=== PATIENT | male | born 1990 | race African-American/Black ===

== ENCOUNTER 2020-08-15 00:53 | Emergency (ER) | payer SELFPAY ==
[2020-08-15] MEDS ORDERED: cefTRIAXone\\ROCEPHIN 500 MG VIAL ONE (01:27)
[2020-08-15] MEDS ORDERED: Sterile Water 10 ML ONE (01:27)
[2020-08-15 01:48] LABS: Bilirubin Neg (Negative); Blood, Urine Negative (Negative); Clarity Clear (Clear); Glucose, Urine (Dipstick) Normal (Negative); Ketone, Urine Negative (Negative); Leukocyte 25 (Negative); Nitrite Negative (Negative); Protein, Urine (Dipstick) Negative (Neg-Trace); Specific Gravity, Urine 1.015 (1.002-1.036); Urobilinogen Normal mg/dL (Less than 2); pH, Urine 6.5 (5.0-9.0)
[2020-08-15 01:59] LABS: Bacteria/HPF 1+ HPF (None Seen); Mucous/LPF 2+ LPF (<2+); RBC/HPF 0-3 HPF (0-3); Squamous Epithelial 0-3 HPF (0-3)
[2020-08-19 23:06] LABS: Chlam.trachomatis by PCR,Urine Not Detected (NotDetected)
== END 2020-08-15 01:50 | disposition home or self-care (01) ==
LOC: CSHERS 00:53
DX: A59.9 Trichomoniasis, unspecified (principal)
CPT/HCPCS: 81003; 81015; 87491; 87591; 96372; 99283; J0696

== ENCOUNTER 2022-02-25 11:05 | Emergency (ER) | payer SELFPAY ==
[2022-02-25 12:10] LABS: Bilirubin Neg (Negative); Blood, Urine 10 (Negative); Clarity Clear (Clear); Glucose, Urine (Dipstick) Normal (Negative); Ketone, Urine Negative (Negative); Leukocyte 25 (Negative); Nitrite Negative (Negative); Protein, Urine (Dipstick) Negative (Neg-Trace); Urobilinogen Normal mg/dL (Less than 2)
[2022-02-25 12:34] LABS: RBC/HPF 0-3 HPF (0-3); Squamous Epithelial 0-3 HPF (0-3)
[2022-02-25 12:36] LABS: Bacteria/HPF None Seen HPF (None Seen)
[2022-02-25] MEDS ORDERED: cefTRIAXone\\ROCEPHIN 500 MG VIAL ONE (13:10)
[2022-02-25] MEDS ORDERED: Sterile Water 10 ML ONE (13:10)
[2022-02-26 12:39] LABS: Chlam.trachomatis by PCR,Urine DETECTED (NotDetected)
== END 2022-02-25 13:13 | disposition home or self-care (01) ==
LOC: CSHERS 11:05
DX: N30.00 Acute cystitis without hematuria (principal)
CPT/HCPCS: 81003; 81015; 87086; 87491; 87591; 96372; 99284; J0696

== ENCOUNTER 2023-02-15 12:12 | Emergency (ER) | payer SELFPAY ==
[2023-02-15 12:46] LABS: Bilirubin Neg (Negative); Blood, Urine 10 (Negative); Clarity Cloudy (Clear); Glucose, Urine (Dipstick) Normal (Negative); Ketone, Urine 5 mg/dL (Negative); Leukocyte 500 (Negative); Nitrite Negative (Negative); Protein, Urine (Dipstick) 30 mg/dl (Neg-Trace); Specific Gravity, Urine 1.015 (1.005-1.030)
[2023-02-15 13:17] LABS: Bacteria/HPF None Seen HPF (None Seen); CAUTI Indications for Culture Dysuria,urgency,freq; Mucous/LPF 1+ LPF (<2+); RBC/HPF 0-3 HPF (0-3); Squamous Epithelial 0-3 HPF (0-3)
[2023-02-15 13:18] LABS: Urine Culture Reflex No No
[2023-02-15] MEDS ORDERED: cefTRIAXone (ROCEPHIN) 500 MG VIAL ONE (13:33)
[2023-02-15] MEDS ORDERED: Sterile Water 10 ML ONE (13:34)
[2023-02-15 20:37] LABS: Chlam.trachomatis by PCR,Urine Not Detected (NotDetected); GC N.gonorrhoeae PCR,UrineVOID Not Detected (NotDetected)
== END 2023-02-15 13:42 | disposition home or self-care (01) ==
LOC: CSHERS 12:12
DX: N41.0 Acute prostatitis (principal); F17.210 Nicotine dependence, cigarettes, uncomplicated
CPT/HCPCS: 81001; 87491; 87591; 96372; 99283; J0696